=== PATIENT | male | born 1960 | race Caucasian/White ===

== ENCOUNTER → 2025-01-04 09:30 | Outpatient (REF) | payer BC, SELFPAY | LOC: PET 09:30 | PROVIDERS: ATTENDING PHYSICIAN Internal Medicine Cardiovascular Disease | DX: R06.02 Shortness of breath (principal); E11.9 Type 2 diabetes mellitus without complications; I10 Essential (primary) hypertension | CPT/HCPCS: 78431; A9555; J2785 ==

== ENCOUNTER → 2025-01-12 07:26 | Outpatient (REF) | payer BC, SELFPAY | LOC: RAD 07:26 | PROVIDERS: ATTENDING PHYSICIAN Internal Medicine Cardiovascular Disease; FAMILY PHYSICIAN Internal Medicine | DX: I71.21 Aneurysm of the ascending aorta, without rupture (principal) | CPT/HCPCS: 71250 ==